=== PATIENT | male | born 1965 | race Caucasian/White ===

== ENCOUNTER 2025-03-04 15:32 | Emergency (ER) | payer MEDICARE ==
[~2025-03-04] VITALS: Ht 185.4 cm; Wt 136.1 kg
[2025-03-04 15:44] VITALS: PULSE 85; RESP 18; TEMP 98.5; O2SAT 98
[2025-03-04 16:14] LABS: BASOPHILS % 0.2 % (0.0-1.0); EOSINOPHILS % 0.6 % (0.0-6.0); LYMPHOCYTES % 25.6 % (18.0-39.1); MONOCYTES % 5.3 % (4.4-11.3); NEUTROPHILS % 68.1 % (38.7-80.0); RED CELL DISTRIBUTION WIDTH 13.0 % (11.7-14.4)
[2025-03-04] MEDS: SODIUM CHLORIDE 0.9% 1000ML 1,000 ML IV ONE (16:19)
[2025-03-04] MEDS: LORAZEPAM INJ 2 MG/ML VIAL IV ONE (16:19)
[2025-03-04 16:34] LABS: EST GLOMERULAR FILTRATION RATE 89.0 ML/MIN (>=60)
[2025-03-04 16:41] LABS: B-TYPE NATRIURETIC PEPTIDE2 < 10.0 pg/mL (0-100)
[2025-03-04 17:17] LABS: ABG BASE EXCESS -1.0 mmol/L (-2 - 3); ABG HCO3 24 mmol/L (22-26); ABG OXYGEN SATURATION 94.0 % (95-98); ABG PCO2 39 mmHg (35-45); ABG PH 7.40 (7.35-7.45); ABG PO2 73 mmHg (80-105); ABG TCO2 25
[2025-03-05 10:51] LABS: ABG BASE EXCESS -1.0 mmol/L (-2 - 3); ABG HCO3 24 mmol/L (22-26); ABG OXYGEN SATURATION 94.0 % (95-98); ABG PCO2 39 mmHg (35-45); ABG PH 7.40 (7.35-7.45); ABG PO2 73 mmHg (80-105); ABG TCO2 25
== END 2025-03-04 18:43 | disposition home or self-care (01) ==
LOC: ER 15:35
DX: R63.1 Polydipsia (principal); R35.89 Other polyuria; G96.198 Other disorders of meninges, not elsewhere classified; E11.65 Type 2 diabetes mellitus with hyperglycemia; R94.31 Abnormal electrocardiogram [ECG] [EKG]
CPT/HCPCS: 36415; 36600; 71045; 80053; 82805; 83036; 83880; 84484; 85025; 85379; 93005; 99284; J2060; J7030